=== PATIENT | male | born 1995 | race Caucasian/White ===

== ENCOUNTER 2023-11-27 18:43 | Outpatient (CLI) | payer BC, SELFPAY | END 2023-11-27 18:44 | disposition home or self-care (01) | PROVIDERS: PCP Family Medicine; Visit Provider Family Medicine | DX: K58.9 Irritable bowel syndrome, unspecified (principal); E78.00 Pure hypercholesterolemia, unspecified | CPT/HCPCS: 80053; 80061 ==